=== PATIENT | male | born 1955 | race Caucasian/White ===

== ENCOUNTER → 2025-10-04 | Outpatient (CLI) | payer OTHER, SELFPAY ==
--- NOTE | 2025-10-04 11:23 | XR_ITS ---
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
== END | disposition home or self-care (01) ==
PROVIDERS: Referring Provider Internal Medicine; Visit Provider Internal Medicine
DX: J44.9 Chronic obstructive pulmonary disease, unspecified (principal)
CPT/HCPCS: 71046